=== PATIENT | female | born 1990 | race Caucasian/White ===

== ENCOUNTER 2021-09-18 15:37 | Emergency (ER) | payer MEDICAID, OTHER ==
[~2021-09-18] VITALS: Ht 170.2 cm; Wt 54.4 kg
[2021-09-18 15:37] VITALS: BP 108/70
[2021-09-18 16:43] LABS: BILIRUBIN,URINE NEGATIVE (NEGATIVE); COLOR,URINE YELLOW (YELLOW); LEUKOCYTE ESTERASE ,URINE SMALL (NEGATIVE); NITRITE, URINE POSITIVE (NEGATIVE); PROTEIN,URINE 100 mg/dl (NEGATIVE); UGLUCOSE 250 MG/DL mg/dL (NEGATIVE)
[2021-09-18 16:51] LABS: CLINITEST,URINE TRACE
[2021-09-18 16:53] LABS: BACTERIA,URINE 1+ /HPF (None Seen); RBC,URINE 0-2 /HPF (0-2); SQUAMOUS EPITHELIAL CELL,UR Few /HPF (None Seen); WBC,URINE 51-80 /HPF (0-3)
[2021-09-18] MEDS ORDERED: ONDANSETRON 4 MG TAB.RAPDIS SL ONE (17:00)
[2021-09-18] MEDS ORDERED: ONDANSETRON 4 MG TAB.RAPDIS ONE (17:21)
[2021-09-18] MEDS ORDERED: CEPH500T PO (17:36)
[2021-09-18] MEDS ORDERED: PHEN-705 PO (17:36)
[2021-09-18] MEDS ORDERED: ONDA4TAB5 PO (17:36)
== END 2021-09-18 17:45 | disposition home or self-care (01) ==
LOC: ER 15:46
DX: N39.0 Urinary tract infection, site not specified (principal); R11.2 Nausea with vomiting, unspecified; R81 Glycosuria; Z87.440 Personal history of urinary (tract) infections
CPT/HCPCS: 81001; 82962; 84703; 87077; 87086; 87186; 99283; Q0162

== ENCOUNTER 2022-09-25 00:59 | Emergency (ER) | payer OTHER ==
[~2022-09-25] VITALS: Ht 170.2 cm; Wt 56.7 kg
[~2022-09-25 00:59] MED LIST: CEPH500T PO; ONDA4TAB5 PO; PHEN-705 PO
[2022-09-25 01:12] VITALS: BP 123/86
--- NOTE | 2022-09-25 01:28 | NUR ---
ACCUCHECK BS 90
--- NOTE | 2022-09-25 01:45 | NUR ---
Patient discharged to home in stable condition. Written and verbal after care instructions given. Patient verbalizes understanding of instruction. PT WAS PICKED UP BY HER MOM AND SISTER
== END 2022-09-25 02:08 | disposition home or self-care (01) ==
LOC: ER 01:02
DX: F10.129 Alcohol abuse with intoxication, unspecified (principal); Z79.899 Other long term (current) drug therapy; Y90.9 Presence of alcohol in blood, level not specified
CPT/HCPCS: 82962-TC